=== PATIENT | female | born 1960 | race Two or more races ===

== ENCOUNTER → 2025-02-02 | Outpatient (CLI) | payer OTHER ==
[2025-02-02 07:30] LABS: Hematocrit 42.1 % (36.0-46.0); Hemoglobin 14.6 g/dL (12.2-16.2); Mean Corpuscular Hemoglobin 29.6 pg (28.0-32.0); Mean Corpuscular Volume 85.1 fL (80.0-100.0); Nucleated Red Blood Cells % 0.1 %
[2025-02-02 07:43] LABS: Urine Protein, UAD Negative (Negative)
[2025-02-02 07:48] LABS: Cholesterol 132 mg/dL (< 200)
[2025-02-02 07:49] LABS: Triglycerides 272 mg/dL (< 150)
[2025-02-02 07:53] LABS: HDL Cholesterol 39 mg/dL (40-59)
[2025-02-02 10:04] LABS: Hepatitis B Surface Antigen Negative (Negative)
[2025-02-02 10:16] LABS: Hepatitis C Antibody Negative (Negative)
== END | disposition home or self-care (01) ==
LOC: LAB 06:53
PROVIDERS: ATTEND Nurse Practitioner Family
DX: I10 Essential (primary) hypertension (principal); E78.5 Hyperlipidemia, unspecified; Z00.00 Encounter for general adult medical examination without abnormal findings
CPT/HCPCS: 36415; 80061; 80074; 81001; 84443; 85025